=== PATIENT | male | born 1960 | race Two or more races ===

== ENCOUNTER 2023-11-20 16:54 | Emergency (ER) | payer MEDICAID, OTHER ==
[~2023-11-20] VITALS: Ht 175.3 cm; Wt 75.0 kg
[~2023-11-20 16:54] MED LIST: CARV6 PO; LISI-894 PO; MULT-67 PO; OMEP20 PO; PARO10TA89 PO
[2023-11-20 17:10] VITALS: BP 94/66; PULSE 79; RESP 14; TEMP 97.8
[2023-11-20] MEDS ORDERED: CHLO25CA6 PO (17:25)
[2023-11-20] MEDS ORDERED: CARV3.1231 PO (17:25)
[2023-11-20] MEDS ORDERED: THIA100T92 PO (17:25)
[2023-11-20] MEDS ORDERED: PANT-31 PO (17:25)
[2023-11-20] MEDS ORDERED: PARO-149 PO (17:25)
[2023-11-20] MEDS ORDERED: NALT50TA33 PO (17:25)
[2023-11-20] MEDS ORDERED: FOLI-130 PO (17:25)
[2023-11-20] MEDS ORDERED: SUCR1TAB28 PO (17:25)
[2023-11-20] MEDS ORDERED: AMLO2.5T29 PO (17:25)
[2023-11-20] MEDS ORDERED: MULT-1203 PO (17:25)
[2023-11-20 18:13] LABS: BASOPHILS % (AUTO) 0.6 % (0.0-2.0); EOSINOPHILS % (AUTO) 3.5 % (1.0-6.0); HEMATOCRIT 39.7 % (41-53); HEMOGLOBIN 13.1 g/dL (13.5-17.5); LYMPHOCYTES # (AUTO) 1.2 K/uL (1.0-4.8); MEAN CORPUSCULAR HGB CONC 32.9 G/dL (31.0-37.0); MEAN CORPUSCULAR VOLUME 97 fL (80-100); MONOCYTES # (AUTO) 0.6 K/uL (0.1-1.0); MONOCYTES % (AUTO) 12.8 % (2.0-9.0); NEUTROPHILS # (AUTO) 2.5 K/uL (1.8-7.7); NEUTROPHILS % (AUTO) 56.1 % (40.0-70.0); PLATELET COUNT (AUTO) 185 K/uL (150-450); RED BLOOD CELL COUNT(AUTO) 4.08 MIL/uL (4.50-5.90); RED CELL DISTRIBUTION WIDTH 13.8 % (11.5-14.5); WHITE BLOOD COUNT (AUTO) 4.5 K/uL (4.5-11.0)
[2023-11-20 18:22] LABS: ANION GAP 0 mmol/L (8-16); CALCIUM, TOTAL 8.3 mg/dL (8.8-10.5); CARBON DIOXIDE 38 mmol/L (22-29); CHLORIDE 104 mmol/L (98-107); CREATININE 0.71 mg/dL (0.60-1.30); GLOMERULAR FILTR. RATE CALC > 60 mL/min (>60); GLUCOSE,RANDOM 90 mg/dL (70-110); POTASSIUM 3.4 mmol/L (3.5-5.1); SODIUM SERUM 142 mmol/L (136-145); UREA NITROGEN, BLOOD 6 mg/dL (7-18)
[2023-11-20 18:28] LABS: ALANINE AMINOTRANSFERASE 22 U/L (12-78); ALBUMIN 2.9 g/dL (3.4-5.0); ALKALINE PHOSPHATASE 120 U/L (46-116); ASPARTATE AMINOTRANSFERASE 32 U/L (15-37); BILIRUBIN,TOTAL 0.6 mg/dL (0.1-1.0); TOTAL PROTEIN, SERUM 5.8 g/dL (6.4-8.2)
[2023-11-20 18:31] LABS: TROPONIN I-HIGH SENSITIVITY 6 ng/L (<76)
[2023-11-20 18:40] LABS: ALCOHOL, BLOOD (SERUM) 177 mg/dL (0-10)
[2023-11-20 19:19] LABS: PH,URINE DRUG SCREEN 5.5 (5.0-8.0)
[2023-11-20 19:27] LABS: ALCOHOL, URINE DRUG SCREEN POSITIVE (NEGATIVE); AMPHET/METH SCREEN,URINE NEGATIVE (NEGATIVE); BARBITURATE SCREEN, URINE NEGATIVE (NEGATIVE); BENZODIAZEPINES SCREEN,URINE POSITIVE (NEGATIVE); CANNABINOID SCREEN,URINE NEGATIVE (NEGATIVE); COCAINE SCREEN,URINE NEGATIVE (NEGATIVE); METHADONE SCREEN, URINE NEGATIVE (NEGATIVE); OPIATE SCREEN,URINE NEGATIVE (NEGATIVE); PHENCYCLIDINE SCREEN,URINE NEGATIVE (NEGATIVE)
[2023-11-20] MEDS: POTASSIUM CHLORIDE 20 MEQ ER TABLET PO ONE (20:50)
== END 2023-11-20 20:55 | disposition home or self-care (01) ==
LOC: EMS 16:54
DX: K70.30 Alcoholic cirrhosis of liver without ascites (principal); F10.229 Alcohol dependence with intoxication, unspecified; E87.6 Hypokalemia; R41.82 Altered mental status, unspecified; I11.0 Hypertensive heart disease with heart failure; I50.9 Heart failure, unspecified; Y90.9 Presence of alcohol in blood, level not specified
CPT/HCPCS: 99283; 80048; 80076; 84484; 85025; 36415; 80307; G0480